=== PATIENT | male | born 1990 | race Caucasian/White ===

== ENCOUNTER 2018-08-30 16:57 | Emergency (ER) | payer BC ==
[~2018-08-30] VITALS: Ht 172.7 cm; Wt 78.5 kg
[2018-08-30 17:32] VITALS: BP 119/69
[2018-08-30] MEDS ORDERED: PHEN64.8 PO (17:43)
--- NOTE | 2018-08-30 17:46 | PHYS DOC ---
Past Medical History Past Medical History: Seizure Past Surgical History: No Surgical History Alcohol Use: Occasionally Drug Use: None Adult General Chief Complaint Chief Complaint: MEDICATION REFILL [facility] HPI Patient is a 27 year old male who presents with complaining of any medication and referral for seizure. Patient states he has has history of seizures since age of 13 as a grand mal and petit mal and absence seizure and treated with different medication and finally phenobarbital worked for him but he lost his insurance for several years and didn't take medication. Patient states he had episodes of seizure activity weekly but had seizure yesterday and today and wants referral to neurologist and he fell off his phenobarbital until seen by a neurologist. Patient denies loss of consciousness or urine and bowel incontinence or follow-up injuries. Patient denies using illegal drugs and states he takes alcohol occasionally. Review of Systems Review of Systems Constitutional: Denies fever or chills [] Eyes: Denies change in visual acuity, redness, or eye pain [] HENT: Denies nasal congestion or sore throat [] Respiratory: Denies cough or shortness of breath [] Cardiovascular: No additional information not addressed in HPI [] GI: Denies abdominal pain, nausea, vomiting, bloody stools or diarrhea [] : Denies dysuria or hematuria [] Musculoskeletal: Denies back pain or joint pain [] Integument: Denies rash or skin lesions [] Neurologic: Denies headache, focal weakness or sensory changes [] Endocrine: Denies polyuria or polydipsia [] All other systems were reviewed and found to be within normal limits, except as documented in this note. Allergies Allergies Allergies Coded Allergies Type Severity Reaction Last Updated Verified No Known Drug Allergies 08/30/18 No Physical Exam Physical Exam Constitutional: Well developed, well nourished, no acute distress, non-toxic appearance. [] HENT: Normocephalic, atraumatic. Eyes: PERRLA, EOMI, conjunctiva normal, no discharge. [] Neck: Normal range of motion, no tenderness, supple, no stridor. [] Cardiovascular:Heart rate regular rhythm, no murmur [] Lungs & Thorax: Bilateral breath sounds clear to auscultation [] Abdomen: Bowel sounds normal, soft, no tenderness, no masses, no pulsatile masses. [] Skin: Warm, dry, no erythema, no rash. [] Back: No tenderness, no CVA tenderness. [] Extremities: No tenderness, no cyanosis, no clubbing, ROM intact, no edema. [] Neurologic: Alert and oriented X 3, normal motor function, normal sensory function, no focal deficits noted. [] Psychologic: Affect normal, judgement normal, mood normal. [] Current Patient Data Vital Signs Vital Signs Date Time Temp Pulse Resp B/P (MAP) Pulse Ox O2 Delivery O2 Flow Rate FiO2 08/30/18 17:32 98.6 76 19 119/69 (86) 98 Room Air 98.6 EKG EKG [] Radiology/Procedures Radiology/Procedures [] Course & Med Decision Making Course & Med Decision Making Evaluation of patient in ER showed 27-year-old male patient with history of seizure presented to ER for refill of phenobarbital and referral to a neurologist. Prescription for 10 days phenobarbital was given and information about Dr. Vences cable television access coordinator neurologist was provided for patient. Dragon Disclaimer Dragon Disclaimer This electronic medical record was generated, in whole or in part, using a voice recognition dictation system. Departure Departure Impression: Primary Impression: Seizure disorder Additional Impressions: Encounter for medication refill Tobacco abuse Tobacco abuse counseling Disposition: HOME, SELF-CARE (at 1745) Condition: STABLE Referrals: BHAVESH CAMPBELL MD Patient Instructions: Seizure, Adult, Smoking Cessation, Tips For Success Additional Instructions: Follow-up with on-call neurologist in 2 or 3 days Follow-up with your primary care physician in 3-5 days Return to ER if not getting better Do not use alcohol or drugs and avoid of lack of sleep Scripts Phenobarbital (PHENOBARBITAL) 64.8 Mg Tablet 64.8 MG PO BID, #20 TAB Prov: DANIEL HERNANDEZ MD 08/30/18 Problem Qualifiers DANIEL HERNANDEZ MD August 30, 2018 17:45
== END 2018-08-30 18:00 | disposition home or self-care (01) ==
LOC: ER 16:57
DX: G40.909 Epilepsy, unspecified, not intractable, without status epilepticus (principal); Z76.0 Encounter for issue of repeat prescription; Z71.6 Tobacco abuse counseling
CPT/HCPCS: 99283

== ENCOUNTER 2019-01-17 16:24 | Emergency (ER) | payer BC ==
[~2019-01-17] VITALS: Ht 172.7 cm; Wt 81.6 kg
[~2019-01-17 16:24] MED LIST: PHEN64.8 PO
[2019-01-17 16:30] VITALS: BP 143/79
[2019-01-17] MEDS ORDERED: PHEN64.8 PO (16:51)
--- NOTE | 2019-01-17 16:52 | PHYS DOC ---
Past Medical History Past Medical History: Seizure Past Surgical History: No Surgical History Alcohol Use: Occasionally Drug Use: None Adult General Chief Complaint Chief Complaint: MEDICATION REFILL HPI HPI Patient is a 28 year old male who who presents for medication refill. The patient states that he's been having absent seizures at work. The patient is out of his medicines for week. He also does not have a neurologist or primary care doctor. No other complaints or symptoms. Review of Systems Review of Systems Constitutional: Denies fever or chills [] Eyes: Denies change in visual acuity, redness, or eye pain [] HENT: Denies nasal congestion or sore throat [] Respiratory: Denies cough or shortness of breath [] Cardiovascular: No additional information not addressed in HPI [] GI: Denies abdominal pain, nausea, vomiting, bloody stools or diarrhea [] : Denies dysuria or hematuria [] Musculoskeletal: Denies back pain or joint pain [] Integument: Denies rash or skin lesions [] Neurologic: Denies headache, focal weakness or sensory changes [] Endocrine: Denies polyuria or polydipsia [] Complete systems were reviewed and found to be within normal limits, except as documented in this note. Allergies Allergies Allergies Coded Allergies Type Severity Reaction Last Updated Verified No Known Drug Allergies 08/30/18 No Physical Exam Physical Exam Constitutional: Well developed, well nourished, no acute distress, non-toxic appearance. [] HENT: Normocephalic, atraumatic, bilateral external ears normal, oropharynx moist, no oral exudates, nose normal. [] Eyes: PERRLA, EOMI, conjunctiva normal, no discharge. [] Neck: Normal range of motion, no tenderness, supple, no stridor. [] Cardiovascular:Heart rate regular rhythm, no murmur [] Lungs & Thorax: Bilateral breath sounds clear to auscultation [] Abdomen: Bowel sounds normal, soft, no tenderness, no masses, no pulsatile masses. [] Skin: Warm, dry, no erythema, no rash. [] Back: No tenderness, no CVA tenderness. [] Extremities: No tenderness, no cyanosis, no clubbing, ROM intact, no edema. [] Neurologic: Alert and oriented X 3, normal motor function, normal sensory function, no focal deficits noted. [] Psychologic: Affect normal, judgement normal, mood normal. [] EKG EKG [] Radiology/Procedures Radiology/Procedures [] Course & Med Decision Making Course & Med Decision Making Pertinent Labs and Imaging studies reviewed. (See chart for details) Discussed with patient that he needs a primary care provider and a neurologist to be managing his care. I will refill his Phenobarbital prescription for 30 days. Discussed with him that I will not continue to refill his prescription. I will give a dose of medication here in ER. Dragon Disclaimer Dragon Disclaimer This electronic medical record was generated, in whole or in part, using a voice recognition dictation system. Departure Departure Impression: Primary Impression: Medication refill Disposition: HOME, SELF-CARE Condition: STABLE Referrals: NO PCP (PCP) BHAVESH CAMPBELL MD Patient Instructions: Medication Refill, Emergency Department Additional Instructions: Thank you for visiting [facility]. We appreciate you trusting us with your care. If any additional problems come up don't hesitate to return to visit us. Please follow up with your primary care provider so they can plan additional care if needed and know about the problem that you had. If symptoms worsen come back to the Emergency Department. Any concerning symptoms that start such as chest pain, shortness of air, weakness or numbness on one side of the body, running high fevers or any other concerning symptoms return to the ER. Please follow up with Primary Care and Neurology. Please stop using the ER to get refills. Scripts Phenobarbital (PHENOBARBITAL) 64.8 Mg Tablet 64.8 MG PO BID for 30 Days, #60 TAB Prov: FLACA TOVAR APRN 01/17/19 FLACA TOVAR APRN Jan 17, 2019 16:52
[2019-01-17] MEDS: PHENobarbital 32.4 MG TABLET. PO ONE (17:02)
== END 2019-01-17 17:03 | disposition home or self-care (01) ==
LOC: ER 16:24
DX: R56.9 Unspecified convulsions (principal); Z76.0 Encounter for issue of repeat prescription
CPT/HCPCS: 99283